=== PATIENT | female | born 1950 | race American Indian/Alaskan Native ===

== ENCOUNTER 2017-10-31 14:59 | Emergency (ER) | payer OTHER ==
[2017-10-31 15:33] VITALS: BP 131/75; PULSE 61; RESP 18; TEMP 97.9; O2SAT 96
--- NOTE | 2017-10-31 16:46 | C.PDOC ---
History Of Present Illness 67 y/o female presents with right lower back pain that radiates to the right lower leg, for 1 week. Pain is described as shooting and worsens with movement. Denies any fever, dysuria, incontinence, weakness, or numbness. No direct trauma or fall. Patient denies taking any pain medications. She reports history of similar back pain. Time Seen by Provider: 10/31/17 16:24 Chief Complaint (Nursing): Back Pain History Per: Patient History/Exam Limitations: no limitations Onset/Duration Of Symptoms: Days (x 1 week) Current Symptoms Are (Timing): Still Present Previous Symptoms: Back Pain, Chronic Pain Past Medical History Reviewed: Historical Data, Nursing Documentation, Vital Signs Vital Signs: Last Vital Signs Temp 97.9 F 10/31/17 15:29 Pulse 61 10/31/17 15:29 Resp 18 10/31/17 15:29 BP 131/75 10/31/17 15:29 Pulse Ox 96 10/31/17 17:04 - Medical History PMH: HTN Other Surgeries: Left leg surgery Family History: States: No Known Family Hx - Social History Hx Alcohol Use: No Hx Substance Use: No - Immunization History Hx Tetanus Toxoid Vaccination: No Hx Influenza Vaccination: Yes (2016) Hx Pneumococcal Vaccination: No Review Of Systems Except As Marked, All Systems Reviewed And Found Negative. Constitutional: Negative for: Fever Genitourinary: Negative for: Dysuria Physical Exam - Physical Exam Additional Physical Exam Comments: Constitutional: No acute distress. Head: Normocephalic. Atraumatic. Eyes: PERRL. ENT: Moist mucous membranes. Neck: Supple. Cardiovascular: Regular rate. Radial pulse 2+ bilaterally. Chest: No tenderness. Respiratory: Clear to auscultation bilaterally. GI: Soft. Nontender. Nondistended. Back: No midline tenderness. Tenderness to the right paralumbar region. Musculoskeletal: Normal motor. Sensation to touch intact in B/L legs and saddle area. + Straight leg raise, right. Skin: No rash. Neurologic: Alert, no focal deficit. ED Course And Treatment O2 Sat by Pulse Oximetry: 96 (RA) Pulse Ox Interpretation: Normal Medical Decision Making Medical Decision Making: Impression: 67 y/o F with sciatica. Will give 15 mg toradol IM Instructed to obtain imaging for pain peristent after 3 weeks or to return to ED immediately for any worsening pain, fever, urinary or bowel changes, weakness or numbness. Disposition - Disposition Referrals: Denilson Groves MD [Staff Provider] - Disposition: HOME/ ROUTINE Disposition Time: 17:04 Condition: STABLE Prescriptions: Cyclobenzaprine [Cyclobenzaprine HCl] 1 tab PO Q8H #12 tab Ibuprofen [Motrin] 1 tab PO Q6 #30 tab Instructions: Sciatica (ED) Forms: [email or web address] (K[place]akh) - Clinical Impression Clinical Impression: Sciatica - Scribe Statement The provider has reviewed the documentation as recorded by the Scribe (Lisset Davila) Provider Attestation: All medical record entries made by the Scribe were at my direction and personally dictated by me. I have reviewed the chart and agree that the record accurately reflects my personal performance of the history, physical exam, medical decision making, and the department course for this patient. I have also personally directed, reviewed, and agree with the discharge instructions and disposition.
== END 2017-10-31 17:30 | disposition home or self-care (01) ==
LOC: C.ER 14:59
DX: M54.30 Sciatica, unspecified side (principal); I10 Essential (primary) hypertension
CPT/HCPCS: 96372; 99283; J1885